=== PATIENT | male | born 1975 | race African-American/Black ===

== ENCOUNTER 2017-09-28 05:56 | Emergency (ER) | payer SELFPAY ==
[~2017-09-28] VITALS: Ht 190.5 cm; Wt 112.0 kg
[2017-09-28 08:00] VITALS: BP 128/80
== END 2017-09-28 10:23 | disposition home or self-care (01) ==
LOC: ER 05:56
DX: G89.29 Other chronic pain (principal); M54.5 Low back pain; F17.200 Nicotine dependence, unspecified, uncomplicated; J45.909 Unspecified asthma, uncomplicated
CPT/HCPCS: 99283